=== PATIENT | female | born 2000 | race Caucasian/White ===

== ENCOUNTER 2018-02-25 21:01 | Emergency (ER) | payer OTHER ==
[~2018-02-25] VITALS: Ht 170.2 cm; Wt 113.4 kg
[~2018-02-25 21:01] MED LIST: AZIT250 PO; CEPH500 PO; CLIN300 PO; CODACE30 PO; CRUTCH4 USE; Esgic Tablet1 EACH PO; HYDACE5 PO; IBUP200; IBUP200 PO; METO10 PO; ONDA4ODT MM; OXYACE5T PO; RXONDA4ODT MM; RXSULTRIDS PO; SILSUL1TC TOP; SULTRIDS PO; [UNRECOGNIZED DRUG - REMARK]; [UNRECOGNIZED DRUG - REMARK]
[2018-02-25] MEDS ORDERED: ONDA4ODT MM (21:51)
[2018-02-25] MEDS ORDERED: Benadryl 50 mg50 MG PO (21:51)
[2018-02-25] MEDS ORDERED: Pepcid20 MG PO (21:51)
[2018-02-25] MEDS ORDERED: METPRE4DP PO (21:51)
== END 2018-02-26 00:17 | disposition home or self-care (01) ==
LOC: ER 21:01
DX: L50.0 Allergic urticaria (principal); Z88.0 Allergy status to penicillin; Z88.8 Allergy status to other drugs, medicaments and biological substances
CPT/HCPCS: 96360; 96372; 99283; J1100; J1200; J7120

== ENCOUNTER → 2021-02-06 | Outpatient (CLI) | payer OTHER ==
[~2021-02-06] MED LIST changes: +Benadryl 50 mg50 MG PO; +METPRE4DP PO; +Norco 5-325 Ta1 EACH PO; +Pepcid20 MG PO
[2021-02-09 11:23] LABS: CHLAMYDIA TRACHOMATIS, NAA Negative (Negative)
[2021-02-11 10:08] LABS: HPV APTIMA Positive (Negative); HPV GENOTYPE 16 Negative (Negative)
== END | disposition home or self-care (01) ==
LOC: LAB SHORT 16:40 → LAB 16:40
PROVIDERS: Obstetrics & Gynecology
DX: Z11.3 Encounter for screening for infections with a predominantly sexual mode of transmission (principal); Z12.4 Encounter for screening for malignant neoplasm of cervix
CPT/HCPCS: 87491; 87591; 87624; 87625; G0123

== ENCOUNTER 2021-03-04 19:55 | Emergency (ER) | payer OTHER ==
[~2021-03-04] VITALS: Ht 170.2 cm; Wt 124.7 kg
== END 2021-03-05 00:36 | disposition home or self-care (01) ==
LOC: ER 19:55
DX: R51.9 Headache, unspecified (principal); Z88.0 Allergy status to penicillin; Z88.1 Allergy status to other antibiotic agents
CPT/HCPCS: 96374; 96375; 99283-25; J1100; J1200; J1885; J2765; J7030

== ENCOUNTER → 2021-03-13 | Outpatient (CLI) | payer OTHER | END | disposition home or self-care (01) | LOC: LAB SHORT 08:05 | DX: R87.610 Atypical squamous cells of undetermined significance on cytologic smear of cervix (ASC-US) (principal); R87.810 Cervical high risk human papillomavirus (HPV) DNA test positive | CPT/HCPCS: 88305 ==

== ENCOUNTER → 2021-11-05 | Outpatient (CLI) | payer OTHER ==
[2021-11-08 16:10] LABS: HPV 16 Negative (Negative); HPV 18 Negative (Negative); HPV OTHER HR TYPES Positive (Negative)
== END | disposition home or self-care (01) ==
LOC: LAB SHORT 12:00
PROVIDERS: Obstetrics & Gynecology
DX: R87.610 Atypical squamous cells of undetermined significance on cytologic smear of cervix (ASC-US) (principal); R87.810 Cervical high risk human papillomavirus (HPV) DNA test positive
CPT/HCPCS: 87624; G0123

== ENCOUNTER → 2022-05-22 | Outpatient (CLI) | payer OTHER ==
[2022-05-23 15:11] LABS: HPV 16 Negative (Negative); HPV 18 Negative (Negative); HPV OTHER HR TYPES Negative (Negative)
== END | disposition home or self-care (01) ==
LOC: LAB SHORT 14:15 → LAB 14:15
PROVIDERS: Obstetrics & Gynecology
DX: R87.612 Low grade squamous intraepithelial lesion on cytologic smear of cervix (LGSIL) (principal); R87.810 Cervical high risk human papillomavirus (HPV) DNA test positive
CPT/HCPCS: 87624; 88142

== ENCOUNTER 2024-01-18 12:27 | Emergency (ER) | payer OTHER ==
[~2024-01-18] VITALS: Ht 170.2 cm; Wt 136.1 kg
[2024-01-18 13:43] LABS: BASOPHILS ABSOLUTE AUTO 0.04 K/mm3 (0.00-0.23); BASOPHILS PERCENT AUTO 1 % (0-2); EOSINOPHILS PERCENT AUTO 1 % (0-6); Hematocrit 37.6 % (33.0-51.0); Hemoglobin 12.5 g/dL (11.5-16.0); IMMATURE GRAN PERCENT AUTO 0 % (0-1); LYMPHOCYTES ABSOLUTE AUTO 2.49 K/mm3 (0.84-5.20); LYMPHOCYTES PERCENT AUTO 32 % (21-46); MONOCYTES ABSOLUTE AUTO 0.66 K/mm3 (0.16-1.47); MONOCYTES PERCENT AUTO 9 % (4-13); Mean Corpuscular HGB 29.4 pg (26.0-34.0); Mean Corpuscular HGB Conc 33.2 g/dL (31.5-36.5); Mean Corpuscular Volume 89 fL (80-100); Mean Platelet Volume 10.5 fL (9.1-12.4); NEUTROPHILS ABSOLUTE AUTO 4.49 K/mm3 (1.96-9.15); NEUTROPHILS PERCENT AUTO 58 % (41-73); Platelet Count 271 K/mm3 (150-400); RDW Coefficient Variation 13.5 % (11.7-14.2); RDW Standard Deviation 43.9 fL (35.1-46.3); Red Blood Cell Count 4.25 M/mm3 (3.80-5.20); White Blood Cell Count 7.78 K/mm3 (4.00-11.30)
[2024-01-18 14:08] LABS: Albumin, Blood 3.7 g/dL (3.4-5.0); Albumin/Globulin Ratio 1.1 (0.8-1.8); Bilirubin, Total 0.4 mg/dL (0.1-1.0); Bun/Creatinine Ratio 19.4 (12.0-20.0); Calcium, Blood 8.9 mg/dL (8.5-10.1); Creatinine, Blood 0.52 mg/dL (0.40-1.00); Globulin, Blood 3.4 g/dL (2.2-4.0); Total Protein, Blood 7.1 g/dL (6.4-8.2)
[2024-01-18] MEDS ORDERED: METF500 PO (14:20)
[2024-01-18 14:27] LABS: Source, Urine Clean Catch
[2024-01-18 14:29] LABS: Appearance, Urine Cloudy (Clear); Bilirubin, Urine Neg (Neg); Blood, Urine 5+ (Neg); Color, Urine Red (P-Yellow); Glucose Qualitative, Urine Neg (Neg); Ketones, Urine 1+ (Neg); Leukocyte Esterase, Urine 1+ (Neg); Nitrite, Urine Neg (Neg); Protein, Urine 4+ (Neg); Urobilinogen, Urine NORM (Normal)
[2024-01-18 14:53] LABS: Red Blood Cells, Urine TNTC /hpf (0-2)
[2024-01-18 14:54] LABS: Bacteria Few /hpf; Squamous Epithelial Cells Rare /hpf (Few)
[2024-01-18 16:15] VITALS: BP 125/81
== END 2024-01-18 16:20 | disposition home or self-care (01) ==
LOC: ER 12:27
PROVIDERS: Emergency Medicine
DX: N93.9 Abnormal uterine and vaginal bleeding, unspecified (principal); Z88.1 Allergy status to other antibiotic agents; Z88.0 Allergy status to penicillin; Z79.84 Long term (current) use of oral hypoglycemic drugs
CPT/HCPCS: 36415; 76830; 76856; 80053; 81001; 84703; 85025; 86850; 86900; 86901; 87086; 99284-25

== ENCOUNTER 2025-02-27 19:29 | Emergency (ER) | payer OTHER ==
[~2025-02-27] VITALS: Ht 170.2 cm; Wt 145.2 kg
[~2025-02-27 19:29] MED LIST changes: +METF500 PO
[2025-02-27 20:01] VITALS: BP 152/84
[2025-02-27] MEDS ORDERED: Prochlorperazine Edisylate 10 mg Vial IV ONE (21:30)
[2025-02-27] MEDS ORDERED: Ketorolac Tromethamine 15mg Vial IV ONE (21:30)
[2025-02-27] MEDS ORDERED: NS 1,000 ML IV SCH (21:30)
[2025-02-27] MEDS ORDERED: DiphenhydrAMINE HCl 50 MG/ML 1ML Vial IV ONE (21:35)
[2025-02-27] MEDS ORDERED: Lidocaine 4% 1 Patch TOP ONE (22:00)
[2025-02-27] MEDS ORDERED: ASPERFLEX1 EACH TOP (22:27)
== END 2025-02-27 22:57 | disposition home or self-care (01) ==
LOC: ER 19:29
DX: G43.909 Migraine, unspecified, not intractable, without status migrainosus (principal); Z88.1 Allergy status to other antibiotic agents; Z88.0 Allergy status to penicillin; Z88.8 Allergy status to other drugs, medicaments and biological substances; Z79.84 Long term (current) use of oral hypoglycemic drugs
CPT/HCPCS: 96361; 96374; 96375; 99283-25; A9270; J0780; J1200; J1885; J7030